=== PATIENT | male | born 1995 | race Caucasian/White ===

== ENCOUNTER 2018-10-10 20:54 | Emergency (ER) | payer OTHER ==
[~2018-10-10] VITALS: Ht 175.3 cm; Wt 93.4 kg
[2018-10-10] MEDS ORDERED: AMOXICILLIN500 MG PO (21:06)
[2018-10-10] MEDS ORDERED: ZOFRAN4 MG PO (22:17)
[2018-10-10] MEDS ORDERED: TRAMADOL HCL50 MG PO (22:17)
== END 2018-10-10 22:30 | disposition home or self-care (01) ==
LOC: ED 20:54
DX: J02.9 Acute pharyngitis, unspecified (principal); G43.909 Migraine, unspecified, not intractable, without status migrainosus
CPT/HCPCS: 99282

== ENCOUNTER 2019-10-18 13:15 | Emergency (ER) | payer OTHER ==
[~2019-10-18] VITALS: Ht 175.3 cm; Wt 99.8 kg
[~2019-10-18 13:15] MED LIST: AMOXICILLIN500 MG PO; TRAMADOL HCL50 MG PO; ZOFRAN4 MG PO
== END 2019-10-18 15:33 | disposition home or self-care (01) ==
LOC: ED 13:15
DX: S93.401A Sprain of unspecified ligament of right ankle, initial encounter (principal); X50.9XXA Other and unspecified overexertion or strenuous movements or postures, initial encounter
CPT/HCPCS: 73610; 99283

== ENCOUNTER 2025-01-06 13:19 | Emergency (ER) | payer OTHER ==
[~2025-01-06] VITALS: Ht 175.3 cm; Wt 92.0 kg
[2025-01-06] MEDS ORDERED: LOSARTAN POTASS25 MG PO (14:56)
[2025-01-06] MEDS ORDERED: ASPIRIN81 MG PO (14:56)
[2025-01-06 15:03] LABS: EOSINOPHILS 2.1 % (0-6); HEMATOCRIT 45.9 % (35.0-50.0); HEMOGLOBIN 16.1 g/dL (12.0-18.0); LYMPHOCYTES 25.2 % (24-44); MCH 30.7 (27-36); MCHC 35.1 g/dl (30-36); MCV 87.6 fl (81-99); MONOCYTES 8.6 % (0-12); NEUTROPHILS 63.1 % (39-80); PLATELET COUNT 275 K/uL (140-440); RBC 5.25 M/ul (4.3-5.7); RDW 12.7 (10.5-15.0)
[2025-01-06 15:19] LABS: ALBUMIN 4.2 g/dL (3.4-5.0); ALBUMIN/GLOBULIN RATIO 1.02 (1.1-2.4); ANION GAP 11.7 (7-21); BILIRUBIN, TOTAL 0.8 mg/dL (0.2-1.0); BUN/CREATININE RATIO 22.11 (6.0-28.6); CALCIUM 8.8 mg/dL (8.5-10.1); CREATININE, SERUM 1.04 mg/dL (0.70-1.30); MAGNESIUM 2.3 mg/dL (1.8-2.4); POTASSIUM 3.7 mmol/L (3.5-5.1); PROTEIN, TOTAL 8.3 g/dL (6.4-8.2)
[2025-01-06 16:37] VITALS: BP 117/81
--- NOTE | 2025-01-06 19:15 | EKG ---
[facility] [address] [facility] [place], [place] [address] Signed Normal sinus rhythm Normal ECG No previous ECGs available Confirmed by Lachelle English MD ([id number]) on 01/06/2025 7:14:55 PM Electronically Signed By: LACHELLE ENGLISH MD 01/06/251914 PATIENT NAME: SUGAR JANG Electrocardiogram DATE OF : [birth year] PHYSICIAN: LACHELLE ENGLISH MD REPORT #: [id number] REPORT IS CONFIDENTIAL AND NOT TO BE RELEASED WITHOUT AUTHORIZATION
== END 2025-01-06 16:37 | disposition home or self-care (01) ==
LOC: ED 13:19
PROVIDERS: Emergency Medicine
DX: R07.9 Chest pain, unspecified (principal); I10 Essential (primary) hypertension
CPT/HCPCS: 36415; 80053; 83735; 84484; 85025; 93005; 93010; 99285

== ENCOUNTER 2025-07-03 18:46 | Emergency (ER) | payer OTHER ==
[~2025-07-03] VITALS: Ht 175.3 cm; Wt 106.8 kg
[~2025-07-03 18:46] MED LIST changes: +ASPIRIN81 MG PO; +LOSARTAN POTASS25 MG PO
[2025-07-03 19:30] VITALS: BP 138/92
--- NOTE | 2025-07-04 12:05 | EKG ---
[facility] [address] [facility] [place], [place] [address] Signed Normal sinus rhythm Minimal voltage criteria for LVH, may be normal variant ( R in aVL ) Borderline ECG When compared with ECG of 06-JAN-2025 13:28, No significant change was found Confirmed by José Antonio Frazier DO ([id number]) on 07/04/2025 12:05:02 PM Electronically Signed By: JOSÉ ANTONIO FRAZIER DO 07/04/25 1205 PATIENT NAME: SUGAR JANG SCOTT Electrocardiogram DATE OF : [birth year] PHYSICIAN: JOSÉ ANTONIO FRAZIER DO REPORT #: [id number] REPORT IS CONFIDENTIAL AND NOT TO BE RELEASED WITHOUT AUTHORIZATION
== END 2025-07-03 19:30 | disposition left against medical advice (07) ==
LOC: ED 18:46
DX: R07.9 Chest pain, unspecified (principal); I10 Essential (primary) hypertension; Z53.21 Procedure and treatment not carried out due to patient leaving prior to being seen by health care provider; Z79.899 Other long term (current) drug therapy
CPT/HCPCS: 93005; 93010